=== PATIENT | female | born 1975 | race Caucasian/White ===

== ENCOUNTER 2024-10-04 17:15 | Inpatient (IN) ==
[2024-10-04] MEDS: ceFAZolin 2000MG 2,000 MG/15 ML SYR IV STA (17:30)
[2024-10-04 17:42] LABS: iSTAT Creatinine 0.8 mg/dl (0.6-1.3); iSTAT Hemoglobin 13.3 g/dl (12.0-16.0); iSTAT Ionized Calcium 1.17 mmol/l (1.12-1.32); iSTAT Potassium 3.8 mmol/L (3.3-5.0)
[2024-10-04] MEDS: DIPHTHER/TETAN/PERTUS Vaccine (Tdap, Adol/Adult) 0.5mL IM ONE (17:42)
--- NOTE | 2024-10-04 17:42 | Emergency Department Note ---
Impression & Plan Fracture of right tibia and fibula, Fall, Sprain of ankle, left ED Provider Note Provider: Shaun Nuno MD CHIEF COMPLAINT: Fall, leg injury HISTORY OF PRESENT ILLNESS: Patient is a 49-year-old family history of anxiety on Lexapro presenting here today via ambulance from work. Patient was coming down the stairs at work inside missed the last 1-2 steps and fell injuring her legs. Some pain minimal to the left ankle with significant pain with wound to the distal right lower leg and ankle. EMS reports they are concerned for an open fracture. Patient was traveling upon arrival. We can talk upon arrival. Denies any loss of conscious or head injury. Denies use of blood thinners. Patient [place] any head, neck, chest, abdominal, pelvic, or back pain. Patient denies any injury to the extremities. Patient reports intact sensation in the toes and able to wiggle her toes but pain if she attempts to move the right lower leg all. Denies significant right knee pain. Has had some hives with amoxicillin in the past and no antibiotics prior to arrival. PAST MEDICAL HISTORY: As noted above MEDICATIONS: Reviewed home medication SOCIAL HISTORY: PHYSICAL EXAM: GENERAL: alert and oriented in no acute distress on stretcher Head: normocephalic and atraumatic EYES: No injection, discharge or icterus. EOMI. NECK: Trachea midline. Good range of motion without midline cervical tenderness ENT: Mucous membranes pink and moist. LUNGS: Airway patent. No retractions. Breath sounds clear HEART: Regular rate and rhythm. No chest wall tenderness ABDOMEN: Soft and non-tender, without guarding or rebound with a stable pelvis SKIN: Acyanotic, warm, dry, without rashes EXTREMITIES: Without swelling, tenderness or deformity except for some slight lateral swelling to the left ankle and a approximately 4 x 2 cm wound to the right distal gr with a small amount of bone and blood noted. Intact 2+ right DP pulse and sensation of the right foot otherwise. NEUROLOGICAL: No focal deficits. No aphasia. No facial droop or slurred speech. Normal strength and tone in the extremities. Sensation to gross touch normal. EK bpm normal sinus rhythm. No PVC or PAC. No acute ST segment elevation or depression with a QTc of 456. CONTINUOUS CARDIAC MONITORING: was ordered and showed a heart rate of 70s to 80s bpm in normal sinus rhythm GCS 15. Patient's laboratory studies and imaging reviewed. Differential includes Fracture, dislocation, contusion, intra-abdominal, pneumothorax, intrathoracic, intracranial, neurologic, compartment syndrome, rhabdomyolysis, as well as other pathologies. IMPRESSION/MEDICAL DECISION MAKING: Patient assessed in room B1. Airway breathing circulation assessed and intact. ATLS review seems to only indicate some slight swelling to left lower ankle with a wound to the right distal gr and obvious lateral rotation of the right lower leg. Intact sensation in the bilateral feet and bilateral DP pulses. No significant tenderness of bilateral knees thighs or hips. Given a dose of Ancef and monitor for any reactions. Tetanus updated. No believe any additional imaging of the head or neck at this time. Nexus criteria negative. No believe we need a thoracic/chest/pelvis imaging as she only fell 2 steps. No other complaints here. Wound was quickly irrigated with some saline and covered with sterile bandaging. X-rays obtained and orthopedics contacted for the open fracture of the right tib-fib. Open right tib-fib fracture. Left ankle appears sprain. Blood work unremarkable. Orthopedics evaluated in the ER will plan for OR given the open fracture. Patient pain controlled with several doses of fentanyl. Gel splint per orthopedics placed on left ankle sprain and a Ortho-Glass splint placed on the right lower leg. Taken to the OR for further care. DIAGNOSIS: Fall, right open tib-fib fracture, left ankle sprain DISPOSITION: Evaluated by orthopedics and taken to the OR. Past Med/Surg History Problem List (Updated 10/04/24 @ 19:04 by Michele Batres MD) Fibula fracture Open tibial fracture Sprain of ankle, left (Acute) Fall (Acute) Fracture of right tibia and fibula (Acute) Encounter for pre-operative examination Surgical History History of delivery Family History Mother Leiomyoma of body of uterus Father Myocardial infarction Grandfather (Paternal) Myocardial infarction Grandfather (Maternal) Myocardial infarction Social History Smoking Status: Never smoker Do You Dip or Chew Tobacco: No; Preferred Language: Polish Feels Safe at Home: Yes Allergies Allergies Allergy/AdvReac Type Severity Reaction Status Date / Time Penicillins Allergy Unknown Hives Verified 10/04/24 17:21 Sulfa (Sulfonamide Allergy Unknown Hives Verified 10/04/24 17:21 Antibiotics) Home Meds Home Medications Medication Instructions Recorded Confirmed acetaminophen 325 mg tablet 325 mg PO QID PRN Pain 06/04/24 10/04/24 (Tylenol) escitalopram oxalate 10 mg tablet 10 mg PO UD 06/04/24 10/04/24 Results & Data (ED) Vital Signs Vital Signs - 24 hr 10/04/24 17:19 10/04/24 17:22 10/04/24 17:23 Temperature 36.9 C Temperature Source Pulse Rate 94 H 88 88 Pulse Rate [Apical] Pulse Rate from SpO2 Sensor Respiratory Rate 23 22 Respiratory Effort / Characteristics Respiratory Depth Respiratory Pattern Blood Pressure 183/119 H 183/119 H Blood Pressure [Right Arm] Blood Pressure Mean 151 Blood Pressure Mean [Right Arm] Pulse Oximetry 97 98 Oxygen Delivery Method Room Air Sepsis Recent Fever Within 48 Hours Sepsis New/Unexplained Change in Mental Status Sepsis Action Taken by Nursing 10/04/24 17:25 10/04/24 17:36 10/04/24 17:47 Temperature 36.9 C Temperature Source Oral Pulse Rate 92 H 89 Pulse Rate [Apical] Pulse Rate from SpO2 Sensor Respiratory Rate 20 17 Respiratory Effort / Characteristics Non-Labored Respiratory Depth Normal Respiratory Pattern Regular Blood Pressure 183/119 H 192/106 H Blood Pressure [Right Arm] Blood Pressure Mean 140 146 Blood Pressure Mean [Right Arm] Pulse Oximetry 98 100 Oxygen Delivery Method Room Air Room Air Sepsis Recent Fever Within 48 Hours No Sepsis New/Unexplained Change in Mental Status N/A Sepsis Action Taken by Nursing No Action Required 10/04/24 18:04 10/04/24 18:14 10/04/24 18:30 Temperature Temperature Source Pulse Rate 89 92 H Pulse Rate [Apical] 81 Pulse Rate from SpO2 Sensor Respiratory Rate 18 18 16 Respiratory Effort / Characteristics Non-Labored Respiratory Depth Normal Respiratory Pattern Regular Blood Pressure 161/112 H Blood Pressure [Right Arm] 179/118 H Blood Pressure Mean 124 Blood Pressure Mean [Right Arm] 138 Pulse Oximetry 100 100 100 Oxygen Delivery Method Room Air Room Air Sepsis Recent Fever Within 48 Hours Sepsis New/Unexplained Change in Mental Status Sepsis Action Taken by Nursing 10/04/24 18:30 10/04/24 18:30 10/04/24 18:51 Temperature Temperature Source Pulse Rate 93 H 89 Pulse Rate [Apical] Pulse Rate from SpO2 Sensor 91 H Respiratory Rate 21 13 Respiratory Effort / Characteristics Respiratory Depth Respiratory Pattern Blood Pressure 161/112 H 161/112 H 181/113 H Blood Pressure [Right Arm] Blood Pressure Mean 124 124 135 Blood Pressure Mean [Right Arm] Pulse Oximetry 100 100 Oxygen Delivery Method Sepsis Recent Fever Within 48 Hours Sepsis New/Unexplained Change in Mental Status Sepsis Action Taken by Nursing 10/04/24 19:24 10/04/24 19:25 Temperature Temperature Source Pulse Rate 84 Pulse Rate [Apical] Pulse Rate from SpO2 Sensor Respiratory Rate 16 Respiratory Effort / Characteristics Respiratory Depth Respiratory Pattern Blood Pressure 160/123 H Blood Pressure [Right Arm] Blood Pressure Mean 128 Blood Pressure Mean [Right Arm] Pulse Oximetry 100 Oxygen Delivery Method Room Air Sepsis Recent Fever Within 48 Hours Sepsis New/Unexplained Change in Mental Status Sepsis Action Taken by Nursing Laboratory Data 10/04/24 17:24 10/04/24 17:24 Lab Results 10/04/24 10/04/24 Range/Units 17:24 17:28 WBC 8.19 (4.8-10.8) K/ul RBC 4.78 (4.20-5.40) M/uL Hgb 13.2 (12.0-16.0) g/dl POC Hgb 13.3 (12.0-16.0) g/dl Hct 39.3 (37.0-47.0) % POC Hct 39 (37-47) % MCV 82.2 (80.0-100.0) fL MCH 27.6 (25.0-34.0) pg MCHC 33.6 (32.0-36.0) g/dL RDW Std Deviation 38.5 (36.4-46.3) fL RDW Coeff of Bry 12.8 (11.5-14.5) % Plt Count 274 (130-400) K/uL MPV 9.6 (9.4-12.4) fL Immature Gran % (Auto) 0.4 % Neut % (Auto) 58.7 % Lymph % (Auto) 28.8 % [place] % (Auto) 11.0 % Eos % (Auto) 0.6 % Baso % (Auto) 0.5 % Neut # (Auto) 4.81 (1.40-6.50) K/uL Lymph # (Auto) 2.36 (1.20-3.40) K/uL [place] # (Auto) 0.90 H (0.11-0.59) K/uL Eos # (Auto) 0.05 (0.00-0.50) K/uL Baso # (Auto) 0.04 (0.00-0.20) K/uL Immature Gran # (Auto) 0.03 (0.01-0.20) K/uL PT 10.4 (9.0-12.0) Seconds INR 1.0 (0.9-1.1) APTT 25 (21-31) Seconds PTT Ratio 0.9 POC Sodium 139 (135-144) mmol/L Sodium 137 (136-145) mmol/L POC Potassium 3.8 (3.3-5.0) mmol/L Potassium 3.7 (3.5-5.1) mmol/L POC Chloride 104 (101-112) mmol/L Chloride 104 (98-107) mmol/L Carbon Dioxide 25 (21-32) mmol/L POC Total CO2 24 (24-31) mmol/L Anion Gap 8 (3-11) POC Anion Gap 16.0 (16-25) mmol/L POC BUN 15 (7-18) mg/dl BUN 15 (6-23) mg/dl Creatinine 0.72 (0.6-1.2) mg/dl POC Creatinine 0.8 (0.6-1.3) mg/dl Est Cr Clr Drug Dosing 108.8 ml/min eGFR 103.71 BUN/Creatinine Ratio 20.8 H (10-20) Glucose 104 H (70-99(Fasting)) mg/dl POC Glucose (other) 103 H (70-99) mg/dl Calcium 9.2 (8.6-10.3) mg/dl POC Ioniz Calcium Herm[place] 1.17 (1.12-1.32) mmol/l Total Bilirubin 0.3 (0.2-1.0) mg/dl AST 17 (13-39) U/L ALT 11 (7-52) U/L Alkaline Phosphatase 42 (34-104) U/L Total Protein 8.0 (6.0-8.3) gm/dl Albumin 4.5 (3.4-5.0) gm/dl Globulin 3.5 (2.5-4.0) gm/dl Albumin/Globulin Ratio 1.3 (0.9-2) Lipase 26 (11-82) U/L HCG, Qual Negative (Negative) Blood Type AB Positive Antibody Screen NEGATIVE Administered Medications Discontinued Medications Diphtheria/Pertussis/Tetanus Vacc (Diphther/Tetan/Pertus Vaccine (Tdap, Adol/Adult) 0.5ml) 0.5 ml IM .ONCE ONE Stop: 10/04/24 17:23 Last Admin: 10/04/24 17:42 Dose: 0.5 ml Documented By: JANET Fentanyl Citrate (Fentanyl Citrate Pf 100 Mcg/2 Ml Vial) 50 mcg IV NOW STA Stop: 10/04/24 18:04 Last Admin: 10/04/24 18:09 Dose: 50 mcg Documented By: JANET Fentanyl Citrate (Fentanyl Citrate Pf 100 Mcg/2 Ml Vial) 50 mcg IV NOW STA Stop: 10/04/24 18:24 Last Admin: 10/04/24 18:44 Dose: 50 mcg Documented By: JANET Fentanyl Citrate (Fentanyl Citrate Pf 100 Mcg/2 Ml Vial) 50 mcg IV NOW STA Stop: 10/04/24 19:27 Last Admin: 10/04/24 19:33 Dose: 50 mcg Documented By: Cefazolin Sodium (Ancef 2000mg) 2,000 mg in 15 mls @ 3.75 mls/min IV NOW STA Stop: 10/04/24 17:28 Last Admin: 10/04/24 17:30 Dose: 3.75 mls/min Documented By: JANET Cefazolin Sodium (Ancef 2000mg) 2,000 mg in 15 mls @ 3.75 mls/min IV ONCE ONE; Protocol Stop: 10/04/24 21:01 Last Admin: 10/04/24 20:47 Dose: 3.75 mls/min Documented By: [id number] Tranexamic Acid (Tranexamic Acid / 0.7% Nacl 1000mg/100ml Bag) Confirm Administered Dose 1,000 mg IV .STK-MED ONE Stop: 10/04/24 20:44 Last Admin: 10/04/24 20:47 Dose: 1,000 mg Documented By: [id number] Imaging Data Radiologist's Impression: Ankle X-Ray 10/04/24 17:22 EXAM:Radiographs of the Right Ankle 2 Views INDICATION: Fell down stairs. TECHNIQUE: Frontal and lateral views of the right ankle. Images obtained at 5:21 PM. COMPARISON: No relevant prior studies available. FINDINGS: Limitations: None. Bones/joints: Comminuted fracture at the junction of the middle and distal thirds of the tibial shaft with apex medial angulation. Similar fracture slightly more distal involves the fibular shaft. There is an acute transverse fracture of the mid fibular shaft with very minimal apex anterior bowing. Soft tissues:Soft tissue swelling and medial gas noted consistent with open fracture. No radiopaque foreign body aside from bandaging. IMPRESSION: Comminuted mildly angulated fractures of the mid to distal shaft of the tibia and distal fibular shaft. Additional fibular midshaft fracture noted. ACT 112: Negative or not required by law. Electronically signed by Liza Herrmann 10-04-2024 5:50 PM Ankle X-Ray 10/04/24 17:22 EXAM: Radiographs of the Left Ankle 3 Views INDICATION: Fall down stairs. TECHNIQUE: Frontal, lateral and oblique views of the left ankle. COMPARISON: No relevant prior studies available. FINDINGS: Limitations: None. Bones/joints: No fracture, erosion or dislocation. Soft tissues: There is a moderate lateral soft tissue hematoma. No soft tissue gas collection or radiopaque foreign body. IMPRESSION: There is a moderate lateral soft tissue hematoma. No fracture. Recommend follow-up in 7 to 10 days if symptoms persist. ACT 112: Negative or not required by law. Electronically signed by Liza Herrmann 10-04-2024 5:57 PM Tibia/Fibula X-Ray 10/04/24 17:26 EXAM: Radiographs of the Right Tibia and Fibula 2 Views INDICATION: Fell down stairs TECHNIQUE: Frontal and lateral views of the right tibia and fibula. COMPARISON: No relevant prior studies available. FINDINGS: Bones/joints: There is a comminuted fracture of the tibial shaft at the junction of the middle and distal thirds. Similar fracture of the fibula noted in the distal shaft. There is a transverse fracture of the midshaft fibula. There is significant rotation of near 90 degrees about the comminuted fractures with the ankle seen in the lateral projection in the knee AP. Soft tissues: Diffuse soft tissue swelling noted. There is gas adjacent to the tibial fracture consistent with an open wound. Overlying bandaging noted. IMPRESSION: Acute tibial and fibular fractures with near 90 degrees rotation of the distal fragments. ACT 112: Negative or not required by law. Electronically signed by Liza Herrmann 10-04-2024 5:59 PM Chest X-Ray 10/04/24 18:23 EXAM: Radiograph of the Chest 1 View INDICATION: Chest pain. TECHNIQUE: Frontal view of the chest. COMPARISON: No relevant prior studies available. FINDINGS: Lungs and pleural spaces: No consolidation or pulmonary edema. No pleural effusion or pneumothorax. Heart: Shape and configuration within normal limits allowing for technique. Mediastinum: Normal contour. Bones/joints: No fracture, erosion or dislocation. Soft tissues: No abnormality noted. No radiopaque foreign body noted. Upper abdomen: No abnormality noted. IMPRESSION: No abnormality noted. ACT 112: Negative or not required by law. Electronically signed by Liza Herrmann 10-04-2024 6:[address] 10/04/24 18:23 Exam(s): CT RIGHT ANKLE Without Contrast EXAM: CT Right Lower Extremity Without Intravenous Contrast, Ankle CLINICAL HISTORY: Reason for exam: leg frx, eval. TECHNIQUE: Axial computed tomography images of the right ankle without intravenous contrast. CTDI is 24 mGy and DLP is 590 mGy-cm. Automated exposure control was utilized for the study. A dose lowering technique was utilized adhering to the principles of ALARA. COMPARISON: X-rays same-day FINDINGS: Bones/joints: Comminuted open fracture of the tibial shaft. Comminuted fracture of the distal fibular metadiaphysis. Normal alignment of the mortise. No fracture extension to the articular surface. The distal syndesmosis appears normal. Soft tissues: No grossly evident tendon transection or entrapment. Soft tissue edema, hemorrhage, and gas. No radiopaque foreign body. IMPRESSION: 1. Comminuted open fracture of the tibial shaft. 2. Comminuted fracture of the distal fibular metadiaphysis. Electronically signed by: Wes Baez MD 10/04/24 20:45 PM Discharge Plan Visit Data Chief Complaint: Trauma ED Provider: Shaun Nuno Discharge Problem: Fracture of right tibia and fibula, Fall, Sprain of ankle, left Discharge Instructions Interventions: ED Discharge Assessment Last Done: 10/04/24 19:50 Discharge Problem: Fracture of right tibia and fibula Qualifiers: Encounter type: initial encounter Fracture type: open Sprain of ankle, left Qualifiers: Encounter type: initial encounter
[2024-10-04 17:43] LABS: Basophils # (auto) 0.04 K/uL (0.00-0.20); Basophils % (auto) 0.5 %; Eosinophils # (auto) 0.05 K/uL (0.00-0.50); Eosinophils % (auto) 0.6 %; Hematocrit (blood only) 39.3 % (37.0-47.0); Hemoglobin 13.2 g/dl (12.0-16.0); Immature Granulocytes # (auto) 0.03 K/uL (0.01-0.20); Immature Granulocytes % (auto) 0.4 %; Lymphocytes # (auto) 2.36 K/uL (1.20-3.40); Lymphocytes % (auto) 28.8 %; Mean Corpuscular Hemoglobin 27.6 pg (25.0-34.0); Mean Corpuscular Hgb Conc 33.6 g/dL (32.0-36.0); Mean Corpuscular Volume 82.2 fL (80.0-100.0); Mean Platelet Volume 9.6 fL (9.4-12.4); Neutrophils # (auto) 4.81 K/uL (1.40-6.50); Neutrophils % (auto) 58.7 %; Platelet Count 274 K/uL (130-400); RDW Coefficient of Variation 12.8 % (11.5-14.5); RDW Standard Deviation 38.5 fL (36.4-46.3); Red Blood Count 4.78 M/uL (4.20-5.40); White Blood Count 8.19 K/ul (4.8-10.8)
--- NOTE | 2024-10-04 17:50 | XRay Report ---
EXAM:Radiographs of the Right Ankle 2 Views INDICATION: Fell down stairs. TECHNIQUE: Frontal and lateral views of the right ankle. Images obtained at 5:21 PM. COMPARISON: No relevant prior studies available. FINDINGS: Limitations: None. Bones/joints: Comminuted fracture at the junction of the middle and distal thirds of the tibial shaft with apex medial angulation. Similar fracture slightly more distal involves the fibular shaft. There is an acute transverse fracture of the mid fibular shaft with very minimal apex anterior bowing. Soft tissues:Soft tissue swelling and medial gas noted consistent with open fracture. No radiopaque foreign body aside from bandaging. IMPRESSION: Comminuted mildly angulated fractures of the mid to distal shaft of the tibia and distal fibular shaft. Additional fibular midshaft fracture noted. ACT 112: Negative or not required by law. Electronically signed by Liza Herrmann 10-04-2024 5:50 PM
[2024-10-04 17:58] LABS: Albumin Globulin Ratio 1.3 (0.9-2); Albumin Level 4.5 gm/dl (3.4-5.0); BUN Creatinine Ratio 20.8 (10-20); Bilirubin,Total 0.3 mg/dl (0.2-1.0); Calcium 9.2 mg/dl (8.6-10.3); Creatinine Clr Calc Pharmacy 108.8 ml/min; Globulin 3.5 gm/dl (2.5-4.0); Potassium 3.7 mmol/L (3.5-5.1)
--- NOTE | 2024-10-04 17:59 | XRay Report ---
EXAM: Radiographs of the Left Ankle 3 Views INDICATION: Fall down stairs. TECHNIQUE: Frontal, lateral and oblique views of the left ankle. COMPARISON: No relevant prior studies available. FINDINGS: Limitations: None. Bones/joints: No fracture, erosion or dislocation. Soft tissues: There is a moderate lateral soft tissue hematoma. No soft tissue gas collection or radiopaque foreign body. IMPRESSION: There is a moderate lateral soft tissue hematoma. No fracture. Recommend follow-up in 7 to 10 days if symptoms persist. ACT 112: Negative or not required by law. Electronically signed by Liza Herrmann 10-04-2024 5:57 PM
--- NOTE | 2024-10-04 17:59 | XRay Report ---
EXAM: Radiographs of the Right Tibia and Fibula 2 Views INDICATION: Fell down stairs TECHNIQUE: Frontal and lateral views of the right tibia and fibula. COMPARISON: No relevant prior studies available. FINDINGS: Bones/joints: There is a comminuted fracture of the tibial shaft at the junction of the middle and distal thirds. Similar fracture of the fibula noted in the distal shaft. There is a transverse fracture of the midshaft fibula. There is significant rotation of near 90 degrees about the comminuted fractures with the ankle seen in the lateral projection in the knee AP. Soft tissues: Diffuse soft tissue swelling noted. There is gas adjacent to the tibial fracture consistent with an open wound. Overlying bandaging noted. IMPRESSION: Acute tibial and fibular fractures with near 90 degrees rotation of the distal fragments. ACT 112: Negative or not required by law. Electronically signed by Liza Herrmann 10-04-2024 5:59 PM
[2024-10-04 18:06] LABS: Pregnancy Test, Serum Negative (Negative)
[2024-10-04 18:07] LABS: Partial Thromboplastin Ratio 0.9; Partial Thromboplastin Time 25 Seconds (21-31); Prothrombin Time 10.4 Seconds (9.0-12.0)
[2024-10-04] MEDS: fentaNYL citrate PF 100 MCG/2 ML VIAL IV STA ×3 (18:09→19:33)
--- NOTE | 2024-10-04 18:43 | XRay Report ---
EXAM: Radiograph of the Chest 1 View INDICATION: Chest pain. TECHNIQUE: Frontal view of the chest. COMPARISON: No relevant prior studies available. FINDINGS: Lungs and pleural spaces: No consolidation or pulmonary edema. No pleural effusion or pneumothorax. Heart: Shape and configuration within normal limits allowing for technique. Mediastinum: Normal contour. Bones/joints: No fracture, erosion or dislocation. Soft tissues: No abnormality noted. No radiopaque foreign body noted. Upper abdomen: No abnormality noted. IMPRESSION: No abnormality noted. ACT 112: Negative or not required by law. Electronically signed by Liza Herrmann 10-04-2024 6:43 PM
--- NOTE | 2024-10-04 18:46 | Anesthesiology Consultation ---
Date of Service October 04, 2024 Assessment & Plan (1) Encounter for pre-operative examination: Chart Review Chart Review: Patient NOT seen in Pre Admission Testing urgent procedure Consults Requested none History Surgery Operation Date: 10/04/24 20:30 Proposed Procedures p Intramedullary Nail Tibia(Right) - Michele Batres MD Height/Weight Height: 5 ft 4 in Weight: 96.4 kg Allergies Allergy/AdvReac Type Severity Reaction Status Date / Time Penicillins Allergy Unknown Hives Verified 10/04/24 17:21 Sulfa (Sulfonamide Allergy Unknown Hives Verified 10/04/24 17:21 Antibiotics) Medications Home Medications Medication Instructions Recorded Confirmed Last Taken acetaminophen 325 mg tablet 325 mg PO QID PRN Pain 06/04/24 10/04/24 Unknown (Tylenol) escitalopram oxalate 10 mg tablet 10 mg PO UD 06/04/24 10/04/24 Unknown Past Family History Family History Mother Leiomyoma of body of uterus Father Myocardial infarction Grandfather (Paternal) Myocardial infarction Grandfather (Maternal) Myocardial infarction Past Surgical History Surgical History History of delivery Social History Smoking Status: Never smoker Do You Dip or Chew Tobacco: No Physical Exam Vital Signs Last Vital Signs Temp 98.4 F 10/04/24 17:25 Pulse 93 H 10/04/24 18:30 Resp 21 10/04/24 18:30 BP 161/112 H 10/04/24 18:30 Pulse Ox 100 10/04/24 18:30 O2 Del Method Room Air 10/04/24 18:14 Testing Laboratory Results 10/04/24 17:24 10/04/24 17:24 PT 10.4 Seconds (9.0-12.0) 10/04/24 17:24 INR 1.0 (0.9-1.1) 10/04/24 17: APTT 25 Seconds (21-31) 10/04/24 17:24 Blood Type AB Positive 10/04/24 17:24 Antibody Screen NEGATIVE 10/04/24 17:24 10/04/24 17:28 POC Glucose (other) 103 H
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
[2024-10-04] MEDS ORDERED: MIDAZOLAM HCL 1 MG/ML 2ML VIAL ONE (19:15)
[2024-10-04] MEDS ORDERED: DEXAMETHASONE SOD INJ 4 MG/ML VIAL ONE (19:15)
[2024-10-04] MEDS ORDERED: ROCURONIUM BROMIDE 10 MG/ML 5 ML VIAL IV ONE (19:15)
[2024-10-04] MEDS ORDERED: PROPOFOL IV EMULSION 10 MG/ML 20 ML VIAL IV ONE (19:15)
[2024-10-04] MEDS ORDERED: ONDANSETRON INJ 2 MG/ML 2 ML VIAL ONE ×2 (19:15→22:51)
[2024-10-04] MEDS ORDERED: fentaNYL citrate PF 100 MCG/2 ML VIAL ONE ×3 (19:15→22:38)
[2024-10-04] MEDS ORDERED: SUCCINYLCHOLINE 100MG/5ML SYR IV ONE (19:17)
[2024-10-04] MEDS ORDERED: ONDANSETRON INJ 2 MG/ML 2 ML VIAL IV PRN (20:28)
[2024-10-04] MEDS ORDERED: fentaNYL citrate PF 100 MCG/2 ML VIAL IV PRN (20:28)
[2024-10-04] MEDS ORDERED: ATROPINE SULFATE 0.1 MG/ML 10ML SYR IV PRN (20:28)
[2024-10-04] MEDS ORDERED: ePHEDrine sulfate 50 MG/ML AMP IV PRN (20:28)
--- NOTE | 2024-10-04 20:46 | CT Scan Report ---
Exam(s): CT RIGHT ANKLE Without Contrast EXAM: CT Right Lower Extremity Without Intravenous Contrast, Ankle CLINICAL HISTORY: Reason for exam: leg frx, eval. TECHNIQUE: Axial computed tomography images of the right ankle without intravenous contrast. CTDI is 24 mGy and DLP is 590 mGy-cm. Automated exposure control was utilized for the study. A dose lowering technique was utilized adhering to the principles of ALARA. COMPARISON: X-rays same-day FINDINGS: Bones/joints: Comminuted open fracture of the tibial shaft. Comminuted fracture of the distal fibular metadiaphysis. Normal alignment of the mortise. No fracture extension to the articular surface. The distal syndesmosis appears normal. Soft tissues: No grossly evident tendon transection or entrapment. Soft tissue edema, hemorrhage, and gas. No radiopaque foreign body. IMPRESSION: 1. Comminuted open fracture of the tibial shaft. 2. Comminuted fracture of the distal fibular metadiaphysis. Electronically signed by: Wes Baez MD 10/04/24 20:45 PM
[2024-10-04] MEDS: ceFAZolin 2000MG 2,000 MG/15 ML SYR IV ONE (20:47)
[2024-10-04] MEDS: TRANEXAMIC ACID / 0.7% NACL 1000MG/100ML BAG IV ONE (20:47)
[2024-10-04] MEDS: LIDOCAINE 1% LOCAL 20 ML VIAL ONE (23:46)
[2024-10-04] MEDS: BUPIVACAINE 0.5 % 5 MG/1 ML MPF 30ML VIAL ONE (23:46)
--- NOTE | 2024-10-04 23:50 | Post Operative Brief Note ---
Immediate Post Op Note Date of Surgery October 04, 2024 Pre & Post Diagnosis Operation Date: 10/04/24 20:30 Pre-Op Diagnosis: Open Tibial Fracture- Right, Closed fibular fracture Post-Op Diagnosis: Grade 2 open right tibia fracture and a closed comminuted fibular fracture I identified the patient and participated in the time-out.: Yes Procedure Operation Date: 10/04/24 20:30 Actual Procedures p Irrigation and Debriedment Open Right Tibial Fracture, Intramedullary Nail Tibia(Right) - Michele Batres MD Surgeon Michele Batres MD Veterinary Dentist KAMERON Hannah no resident or fellow available Estimated Blood Loss 250 Findings Consistent with Post-Op Diagnosis Anesthesia Type General Regional Complications none Disposition Accompanied Patient To Recovery: No Disposition: Recovery Room
--- NOTE | 2024-10-05 00:13 | Operative Report ---
Post Operative Report Pre & Post Diagnosis Operation Date: 10/04/24 20:30 Pre-Op Diagnosis: Open Tibial Fracture- Right Post-Op Diagnosis: Open Tibial Fracture- Right I identified the patient and participated in the time-out.: Yes Procedure Operation Date: 10/04/24 20:30 Actual Procedures p Irrigation and Debriedment Open Right Tibial Fracture, Intramedullary Nail Tibia(Right) - Michele Batres MD Surgeon Michele Batres MD Tow Motor Driver Bassam James PA-C no resident or fellow available Estimated Blood Loss 250 Findings Consistent with Post-Op Diagnosis Specimens None Description of Procedure I was present for the entire case. Please see Dr. Batres's procedure note for full details. I assisted with skin prep, draping, retraction, suctioning, hardware placement, fracture reduction, irrigation, wound closure, dressing application, and splinting. I attest to the content of the Intraoperative Record and any orders documented therein. Any exceptions are noted below.
--- NOTE | 2024-10-05 00:27 | Anesthesiology Progress Note ---
Date of Service October 05, 2024 Anesthesia Post Procedure Vital Signs Vital Signs: Temp Pulse Pulse Resp BP BP Pulse Ox 10/05/24 00:23 98.6 F 87 21 164/97 H 98 10/05/24 00:13 99 F 88 16 166/97 H 100 10/05/24 00:03 98.2 F 97 H 18 155/97 H 100 10/04/24 19:25 160/123 H 10/04/24 19:24 84 16 100 10/04/24 18:51 89 13 181/113 H 100 10/04/24 18:30 93 H 21 161/112 H 100 10/04/24 18:30 161/112 H 10/04/24 18:30 92 H 16 161/112 H 100 10/04/24 18:14 89 18 100 10/04/24 18:04 81 18 179/118 H 100 10/04/24 17:47 10/04/24 17:36 89 17 192/106 H 100 10/04/24 17:25 98.4 F 92 H 20 183/119 H 98 10/04/24 17:23 88 10/04/24 17:22 98.4 F 88 22 183/119 H 98 10/04/24 17:19 94 H 23 183/119 H 97 O2 Del Method 10/05/24 00:23 Room Air 10/05/24 00:13 Room Air 10/05/24 00:03 Room Air 10/04/24 19:25 10/04/24 19:24 Room Air 10/04/24 18:51 10/04/24 18:30 10/04/24 18:30 10/04/24 18:30 10/04/24 18:14 Room Air 10/04/24 18:04 Room Air 10/04/24 17:47 Room Air 10/04/24 17:36 10/04/24 17:25 Room Air 10/04/24 17:23 10/04/24 17:22 Room Air 10/04/24 17:19 Pain Intensity Right Ankle: Pain Intensity: 6 Transfer of Care Handoff Completed per policy Notes Mental Status: alert / awake / arousable and participated in evaluation Patient Amnestic to Procedure: Yes Nausea / Vomiting: adequately controlled Pain: adequately controlled Airway Patency, RR, SpO2: stable & adequate BP & HR: stable & adequate Hydration State: stable & adequate Anesthetic Complications: no major complications apparent and Pt Satisfied with anesthetic care
[2024-10-05] MEDS ORDERED: diphenhydrAMINE Capsule 25 MG CAP PO PRN (01:00)
[2024-10-05] MEDS ORDERED: HYDROmorphone INJ 0.5 MG/0.5 ML SYR IV PRN (01:00)
[2024-10-05] MEDS ORDERED: METOCLOPRAMIDE HCL INJ 5 MG/ML 2 ML VIAL IV PRN (01:00)
[2024-10-05] MEDS ORDERED: ACETAMINOPHEN 500 MG TAB PO PRN (01:00)
[2024-10-05] MEDS ORDERED: bisacodyL 10 MG SUPP PR PRN (01:00)
[2024-10-05] MEDS ORDERED: ALUMINUM/MAGNESIUM SUSP 30 ML UDC PO PRN (01:00)
[2024-10-05] MEDS ORDERED: MAGNESIUM HYDROXIDE SUSP 30 ML UDC PO PRN (01:00)
[2024-10-05] MEDS ORDERED: ONDANSETRON INJ 2 MG/ML 2 ML VIAL IV PRN (01:00)
[2024-10-05] MEDS ORDERED: NALOXONE HCL 0.4 MG/1 ML VIAL/CARP IV PRN (01:00)
[2024-10-05] MEDS ORDERED: ESCITALOPRAM OXALATE 10 MG TAB PO SCH (01:00)
[2024-10-05] MEDS: KETOROLAC 30 MG/ML VIAL IV PRN (01:36)
[2024-10-05] MEDS: ceFAZolin 2000MG 2,000 MG/15 ML SYR IV SCH (01:37)
--- NOTE | 2024-10-05 03:40 | XRay Report ---
EXAM: XR tibia fibula RT 2V CLINICAL HISTORY: PAIN NOT PREG WTW TECHNIQUE: X-ray of right tibia and fibula, 2 views: AP (Anteroposterior) and lateral projections. COMPARISON: 10/04/2024 FINDINGS: Bone: Post ORIF status. Intramedullary nail with fixation screws are noted in the tibia through distal tibial comminuted fracture with adequate alignment. Redemonstration of comminuted fracture of the distal shaft of the fibula with near adequate alignment of fragments. Redemonstration of undisplaced transverse mid-shaft fracture of the fibula. Soft Tissue: Soft tissue swelling noted. Redemonstration of air adjacent to tibial fracture possibly subcutaneous emphysema. Surgical chris are noted in the soft tissues of the right leg. IMPRESSION: 1. Post ORIF status (open reduction and internal fixation). Interval new. 2. Intramedullary nail with fixation screws in tibia through distal tibial comminuted fracture with adequate alignment. 3. Redemonstration of comminuted fracture of the distal shaft of the fibula with near adequate alignment of fragments. 4. Redemonstration of undisplaced transverse mid-shaft fracture of the fibula. Disclaimer: A subtle bone abnormality or fracture may not be readily apparent on X-rays, thus clinical correlation and further imaging including follow-up CT, MRI, or follow-up X-rays are advised as needed. Electronically signed by Shannan Lutz 10-05-2024 02:24 AM
[2024-10-05 03:47] LABS: Appearance Urine Clear (Clear); Bilirubin Urine Negative (Negative); Blood Urine Negative (Negative); Color Urine Yellow; Glucose Urine UA Negative (Negative); Ketones Urine 1+ (Negative); Leukocyte Esterase Urine Negative (Negative); Nitrite Urine Negative (Negative); Protein Urine Negative (Negative); Urobilinogen Urine Negative (Negative)
[2024-10-05] MEDS: traMADol HCL 50 MG TABLET PO PRN (05:27)
[2024-10-05] MEDS: TRANEXAMIC ACID / 0.7% NACL 1,000 MG/100 ML BAG IV SCH (05:28)
--- NOTE | 2024-10-05 07:36 | Fluoroscopy Report ---
FL tibia/fibula RT 2V CLINICAL HISTORY: R ANKLE FX COMPARISON STUDY: Radiographs 10/05/2024 FLUOROSCOPY TIME: 2 minutes and 45 seconds FLUOROSCOPY IMAGES: 1 EXPOSURE DOSE: Not given by technologist mGy FINDINGS: Partially imaged hardware in the distal tibia. Comminuted distal fibular fracture. IMPRESSION: Fluoroscopic assistance as above. ACT 112: Negative or not required by law. Electronically signed by: Haider Matos M.D. 10/05/2024 7:34 AM
--- NOTE | 2024-10-05 07:58 | Electrocardiogram Report ---
Test Reason : Blood Pressure : */* mmHG Vent. Rate : 78 BPM Atrial Rate : 78 BPM P-R Int : 150 ms QRS Dur : 84 ms QT Int : 400 ms P-R-T Axes : 70 73 79 degrees QTcB Int : 456 ms Normal sinus rhythm Normal ECG When compared with ECG of 13-Mar-2016 11:56, Nonspecific ST abnormality no longer present Confirmed by Jose Perry ([id number]) on 10/05/2024 7:58:00 AM Referred By: REFERRED SELF Confirmed By: Jose Perry
[2024-10-05] MEDS: FERROUS GLUCONATE 324 MG TAB PO SCH (08:56)
[2024-10-05] MEDS: DOCUSATE SODIUM 100 MG CAP PO SCH (08:56)
[2024-10-05] MEDS: ESCITALOPRAM OXALATE 10 MG TAB PO SCH (08:57)
[2024-10-05] MEDS: MULTIVITAMIN TAB PO SCH (08:57)
[2024-10-05 09:32] LABS: Hemoglobin 10.4 g/dl (12.0-16.0); Mean Corpuscular Hgb Conc 33.5 g/dL (32.0-36.0); Mean Corpuscular Volume 83.6 fL (80.0-100.0); Mean Platelet Volume 9.9 fL (9.4-12.4); Platelet Count 247 K/uL (130-400); RDW Standard Deviation 39.5 fL (36.4-46.3); Red Blood Count 3.71 M/uL (4.20-5.40); White Blood Count 11.08 K/ul (4.8-10.8)
--- NOTE | 2024-10-05 10:01 | Operative Report ---
Post Operative Report Pre & Post Diagnosis Operation Date: 10/04/24 20:30 Pre-Op Diagnosis: Right distal tib-fib fib fracture with a grade 2 open tibial fracture Post-Op Diagnosis: Same I identified the patient and participated in the time-out.: Yes Procedure Operation Date: 10/04/24 20:30 Actual Procedures p Irrigation and Debriedment Open Right Tibial Fracture, Intramedullary Nail Tibia, Open reduction(Right) - Michele Batres MD Surgeon Michele Batres MD Resource Conservation Manager Bassma James PA-C no resident or fellow available Estimated Blood Loss 250 Findings Consistent with Post-Op Diagnosis Specimens None Anesthesia Type General Regional Complications none Disposition Accompanied Patient To Recovery: No Disposition: Recovery Room Indications Valerie is 49 years old. She fell down steps when leaving work. She sprained her left ankle which was treated with an ankle air stirrup splint. X-rays of the left ankle are negative. She has a comminuted right distal tib-fib fracture. The tibia is associated with a 5 cm open wound anteromedially. Her leg has been provisionally reduced and splinted in the emergency room. She is able to flex and extend her toes has intact sensation and postreduction had a 1+ dorsalis pedis pulse. The posterior tibial pulse could not be reached. Capillary refill was less than 2 seconds. Her compartments were soft and she had no clinical evidence of compartment syndrome. Preoperative CT scan showed a comminuted tib-fib fracture. The fracture did not extend into the ankle joint. Both fractures were markedly comminuted. She received Ancef upon arrival to the emergency room. Her tetanus was updated. Urgent surgical treatment was recommended and she agreed to proceed. Description of Procedure Informed consent. Patient identified. She identified the procedure site as the right leg. I marked it with my initials. A preoperative surgical timeout is performed. Preop dose of IV antibiotics was given. She was taken to the operating room positioned supine on the OR table with a tourniquet on the right thigh which is not inflated during the case. TXA given. Anesthetic administered. The splint was removed revealing the 5 cm wound in a grossly unstable ankle fracture. DP and PT pulses were 1+ palpable. The leg was thoroughly scrubbed with Betadine scrub to remove any superficial contamination. Care was taken at all times to keep the fracture as aligned and stabilizes possible traction. The leg was then prepped with Betadine paint. Draped in usual sterile fashion. Fluoroscopic guidance was utilized. The knee was at times Straight and other times bent. The radiolucent triangle was utilized. SCD on the nonoperative leg for DVT prophylaxis. Postop early mobility SCDs and chemoprophylaxis.The wound was approximately 12 to 15 cm proximal to the ankle joint. The first order of business was to explore the fracture site and thoroughly irrigated. I extended the incisions 3 to 4 cm proximal and distal in a longitudinal fashion to gain access to the fracture. There was a coronal split in the proximal fragment which I provisionally secured with a large bone clamp which also allowed manipulation of the fracture. Irrigation with 6 L of sterile saline using pulsatile lavage was performed. This included both proximal distal intramedullary canals. Curetting of the intramedullary canals was also performed. No gross contamination was noted and a thorough debridement of the entire fracture site removing hematoma as well as irrigating it was performed. No gross contamination was noted. Unfortunately there was a large posteromedial fragment which was located within the intramedullary canal of the tibia. Gentle manipulation of this was performed to extricated from the intramedullary area however at this time it became apparent that this piece of bone had no significant soft tissue attachments to it and it was removed. It was the posterior medial tibia. It was approximately 4 cm long and at its widest about 1.5 cm. This left a bony defect in that area. I then went ahead and flex the knee over the radiolucent triangle. I made a 10 cm incision centered over the patella and patellar tendon. Sharp dissection was utilized down to the level of the patellar tendon. A medial patellar tendon approach was performed and the crest of the proximal tibia was identified. Using fluoroscopic guidance a guidepin was introduced into the proximal tibia just at the anterior margin of the tibial crest and in line with the shaft which corresponded to the medial border of the lateral tibial spine. The pin was adjusted x 2. It was overreamed with the opening reamer using fluoroscopic guidance. A guide brett was then easily introduced down the length of the femur to the physeal scar of the distal tibia. This was confirmed in multiplanar fluoroscopy. When inserting the guide brett as well as reaming and insertion of the nail every effort was made to obtain an anatomic reduction and alignment of the tibial fracture. This was based upon intact anterior lateral and posterolateral cortices which could be visibly seen and palpated through the fracture site and held manually reduced anatomically by the assistant buyer. It could not be held with a clamp. The 8.5 mm opening reamer was utilized followed by reaming in 1 mm increments up to 10.5 mm and half millimeter increments up to 11.5 with strong cortical chatter along the diaphysis. Brett length was determined to be 345 mm. Diameter 10 mm. The brett was affixed to the insertion device and then inserted this far possible in a manual fashion and finally seated with blows from the mallet with the knee in a hyperflexed position and the fracture anatomically reduced. The brett was inserted down to the level of the physeal scar within 5 to 7 mm of the subchondral bone. It was located in a central central fashion just like the guide brett. The fracture was stable and anatomically reduced with intimate bony contact along the after mentioned "intact cortices. The provisional clamp could then be removed. Prior to surgery clinical rotational alignment was determined and this was reproduced on the operative side. With the patella forward the foot faced straight forward. Alignment and length were also confirmed using the bone alignment. The brett was countersunk 10 mm. 2 proximal interlocking screws were inserted. Static 1 and dynamic. These were done percutaneously from medial to lateral and confirmed to be in proper position fluoroscopically. The proximal screw was slightly long but left in situ. The insertion apparatus was removed and the 5 mm endcap extension was applied and confirmed to be in good position fluoroscopically. Then inserted 3 distal interlocking screws 2 medial to lateral and 1 anterior to posterior using the perfect [place] technique. The skin was incised blunt dissection was performed down to the level of the bone and the soft tissues were retracted with a hemostat to allow the drill to engage the bone. Screws of appropriate length were inserted and sales service representative fluoroscopic images were obtained. Copious irrigation was performed again of the fracture site and all the incisions with another liter of saline for total of 7 L. The fracture site was visibly and radiographically anatomically reduced. Hardware was in good position. There was no fracture extension into the joint. The comminuted fibular fracture was very well aligned and out to length. The syndesmosis was clinically and radiographically stressed and found to be stable without any significant widening. I did not think fibular fixation was needed. Care was taken to avoid coronal plane malalignment when inserting the brett reaming at [facility]. The anatomical alignment was maintained. The percutaneous incisions were closed with 2-0 Vicryl and chris. The proximal incision was closed with 0 Vicryl for the patellar tendon 2-0 Vicryl for the subcu layer followed by chris. The surgical extension of the open fracture was closed with 2-0 Vicryl and chris. The traumatic open wound was closed with 3-0 nylon simple and near far far near stitches. Tension-free closure. Local anesthetic Marcaine and lidocaine was injected into the skin of the surgical incisions only. The leg was cleaned with wet and dry sponges. Compartments remain soft. Xeroform 4 x 4's ABD soft wrap and a full-length Darron wrap was applied. Patient awakened from anesthesia without difficulty taken to the recovery room in stable condition. There were no specimens or complications counts were correct and blood loss is estimated to be 250 cc. At the conclusion the operation I contacted patient's by phone discussed him with with him my findings. Patient will be admitted to the hospital. Pain control. PT and OT. She will be toe-touch weightbearing on the right leg with crutches. Monitor neurovascular status. Postop antibiotics Ancef x 24 hours. Lovenox 30 mg SQ twice daily beginning 24 hours postop. A Synthes tibial nail was inserted 10 mm in diameter and 345 mm in length with 5 mm endcap to proximal interlocking screws and 3 distal interlocking screws. I attest to the content of the Intraoperative Record and any orders documented therein. Any exceptions are noted below.
--- NOTE | 2024-10-05 10:30 | Orthopedic Progress Note ---
Date of Service October 05, 2024 Assessment & Plan (1) Sprain of ankle, left: Plan: Continue use of the air stirrup Work on range of motion Ice (2) Open tibial fracture: Plan: Ice PT/OT Toe-touch weightbearing Dressing clean dry and intact and left in place Pain controlled p.o. medication IV antibiotics DVT prophylaxis with recommended Lovenox Dr. Batres will follow-up with patient later this afternoon (3) Fibula fracture: Admission and Anticipated Discharge Date Admission Date: October 04, 2024 Subjective This 49-year-old female is day 1 status post irrigation and debridement with intramedullary nailing of her right tibia for an open tibial shaft fracture that she sustained after missing a few steps at work. Patient states her pain is well-controlled with the medication she is receiving. She is on IV antibiotics due to the fracture being open. Patient states she has not received any type of blood thinning agents as of yet. She denies chest pain, shortness of breath, fever, chills, sweats or numbness or tingling in either lower extremity. Review of Systems Review of Systems: All systems reviewed & are unremarkable except as noted in Subjective Physical Exam Physical Exam: Right lower extremity: Patient tolerates passive extension of her lower extremity to 0 degrees and passive flexion to 25 degrees. Her dressing was clean dry and intact and left in place. She is unable to perform an active straight leg raise test but does tolerate passive straight leg raise testing. She is able to actively dorsi and plantarflex her foot. She is able to detect light sensation to touch over the pads of all digits. Her peripheral pulses are 2+. Left ankle: Stirrup is in place. Patient has mild edema over the lateral aspect of the ankle with tenderness to palpation just distal to the tip of the fibula and over the ATFL. She is able to actively dorsi and plantarflex her foot. She does have discomfort with light passive inversion and eversion. Her peripheral pulses are 2+. She is neurovascularly intact. Results & Data Vital Signs (Past 12 Hours) Vital Signs Temp Pulse Resp BP BP Pulse Ox O2 Del Method 10/05/24 07:58 36.9 C 98 H 16 139/89 97 Room Air 10/05/24 04:30 36.9 C 96 H 16 134/88 97 Room Air 10/05/24 03:15 37.1 C 104 H 16 146/92 H 99 Room Air 10/05/24 02:13 37.1 C 85 16 164/98 H 97 Room Air 10/05/24 01:20 36.9 C 85 16 162/99 H 99 Room Air 10/05/24 01:09 36.9 C 81 15 165/94 H 99 Room Air 10/05/24 00:23 37.0 C 87 21 164/97 H 98 Room Air 10/05/24 00:13 37.2 C 88 16 166/97 H 100 Room Air 10/05/24 00:03 36.8 C 97 H 18 155/97 H 100 Room Air Diagnostic Findings Laboratory Results WBC 11.08 K/ul (4.8-10.8) H 10/05/24 08:44 RBC 3.71 M/uL (4.20-5.40) L 10/05/24 08:44 Hgb 10.4 g/dl (12.0-16.0) L 10/05/24 08:44 POC Hgb 13.3 g/dl (12.0-16.0) 10/04/24 17:28 Hct 31.0 % (37.0-47.0) L 10/05/24 08:44 POC Hct 39 % (37-47) 10/04/24 17:28 MCV 83.6 fL (80.0-100.0) 10/05/24 08:44 MCH 28.0 pg (25.0-34.0) 10/05/24 08:44 MCHC 33.5 g/dL (32.0-36.0) 10/05/24 08:44 RDW Std Deviation 39.5 fL (36.4-46.3) 10/05/24 08:44 RDW Coeff of Bry 13.0 % (11.5-14.5) 10/05/24 08:44 Plt Count 247 K/uL (130-400) 10/05/24 08:44 MPV 9.9 fL (9.4-12.4) 10/05/24 08:44 Immature Gran % (Auto) 0.4 % 10/04/24 17:24 Neut % (Auto) 58.7 % 10/04/24 17:24 Lymph % (Auto) 28.8 % 10/04/24 17:24 [place] % (Auto) 11.0 % 10/04/24 17:24 Eos % (Auto) 0.6 % 10/04/24 17: Baso % (Auto) 0.5 % 10/04/24 17:24 Neut # (Auto) 4.81 K/uL (1.40-6.50) 10/04/24 17:24 Lymph # (Auto) 2.36 K/uL (1.20-3.40) 10/04/24 17:24 [place] # (Auto) 0.90 K/uL (0.11-0.59) H 10/04/24 17:24 Eos # (Auto) 0.05 K/uL (0.00-0.50) 10/04/24: Baso # (Auto) 0.04 K/uL (0.00-0.20) 10/04/24: Immature Gran # (Auto) 0.03 K/uL (0.01-0.20) 10/04/24: PT 10.4 Seconds (9.0-12.0) 10/04/24 17: INR 1.0 (0.9-1.1) 10/04/24: APTT 25 Seconds (21-31) 10/04/24: PTT Ratio 0.9 10/04/24 17:24 POC Sodium 139 mmol/L (135-144) 10/04/24 17: Sodium 137 mmol/L (136-145) 10/04/24 17: POC Potassium 3.8 mmol/L (3.3-5.0) 10/04/24 17: Potassium 3.7 mmol/L (3.5-5.1) 10/04/24 17:24 POC Chloride 104 mmol/L (101-112) 10/04/24 17: Chloride 104 mmol/L (98-107) 10/04/24 17: Carbon Dioxide 25 mmol/L (21-32) 10/04/24 17: POC Total CO2 24 mmol/L (24-31) 10/04/24 17:28 Anion Gap 8 (3-11) 10/04/24 17:24 POC Anion Gap 16.0 mmol/L (16-25) 10/04/24 17: POC BUN 15 mg/dl (7-18) 10/04/24 17:28 BUN 15 mg/dl (6-23) 10/04/24 17:24 Creatinine 0.72 mg/dl (0.6-1.2) 10/04/24 17:24 POC Creatinine 0.8 mg/dl (0.6-1.3) 10/04/24 17:28 Est Cr Clr Drug Dosing 108.8 ml/min 10/04/24 17:24 eGFR 103.71 10/04/24 17:24 BUN/Creatinine Ratio 20.8 (10-20) H 10/04/24 17:24 Glucose 104 mg/dl (70-99(Fasting)) H 10/04/24 17:24 POC Glucose 125 mg/dl (70-99) H 10/05/24 01:35 POC Glucose (other) 103 mg/dl (70-99) H 10/04/24 17:28 Calcium 9.2 mg/dl (8.6-10.3) 10/04/24 17:24 POC Ioniz Calcium [place] 1.17 mmol/l (1.12-1.32) 10/04/24 17:28 Total Bilirubin 0.3 mg/dl (0.2-1.0) 10/04/24 17:24 AST 17 U/L (13-39) 10/04/24 17:24 ALT 11 U/L (7-52) 10/04/24 17:24 Alkaline Phosphatase 42 U/L (34-104) 10/04/24 17:24 Total Protein 8.0 gm/dl (6.0-8.3) 10/04/24 17:24 Albumin 4.5 gm/dl (3.4-5.0) 10/04/24 17:24 Globulin 3.5 gm/dl (2.5-4.0) 10/04/24 17:24 Albumin/Globulin Ratio 1.3 (0.9-2) 10/04/24 17: Lipase 26 U/L (11-82) 10/04/24 17:24 HCG, Qual Negative (Negative) 10/04/24 17:24 Urine Color Yellow 10/05/24 03:30 Urine Appearance Clear (Clear) 10/05/24 03:30 Urine pH 7.0 (4.5-7.5) 10/05/24 03:30 Ur Specific [place] 1.020 (1.000-1.030) 10/05/24 03:30 Urine Protein Negative (Negative) 10/05/24 03:30 Urine Glucose (UA) Negative (Negative) 10/05/24 03:30 Urine Ketones 1+ (Negative) H 10/05/24 03:30 Urine Blood Negative (Negative) 10/05/24 03:30 Urine Nitrite Negative (Negative) 10/05/24 03:30 Urine Bilirubin Negative (Negative) 10/05/24 03:30 Urine Urobilinogen Negative (Negative) 10/05/24 03:30 Ur Leukocyte Esterase Negative (Negative) 10/05/24 03:30 Blood Type AB Positive 10/04/24 17:24 Antibody Screen NEGATIVE 10/04/24 17:24 Impressions Ankle X-Ray 10/04/24 17:22 EXAM: Radiographs of the Left Ankle 3 Views INDICATION: Fall down stairs. TECHNIQUE: Frontal, lateral and oblique views of the left ankle. COMPARISON: No relevant prior studies available. FINDINGS: Limitations: None. Bones/joints: No fracture, erosion or dislocation. Soft tissues: There is a moderate lateral soft tissue hematoma. No soft tissue gas collection or radiopaque foreign body. IMPRESSION: There is a moderate lateral soft tissue hematoma. No fracture. Recommend follow-up in 7 to 10 days if symptoms persist. ACT 112: Negative or not required by law. Electronically signed by Liza Herrmann 10-04-2024 5:57 PM Chest X-Ray 10/04/24 18:23 EXAM: Radiograph of the Chest 1 View INDICATION: Chest pain. TECHNIQUE: Frontal view of the chest. COMPARISON: No relevant prior studies available. FINDINGS: Lungs and pleural spaces: No consolidation or pulmonary edema. No pleural effusion or pneumothorax. Heart: Shape and configuration within normal limits allowing for technique. Mediastinum: Normal contour. Bones/joints: No fracture, erosion or dislocation. Soft tissues: No abnormality noted. No radiopaque foreign body noted. Upper abdomen: No abnormality noted. IMPRESSION: No abnormality noted. ACT 112: Negative or not required by law. Electronically signed by Liza Herrmann 10-04-2024 6:[address] 10/04/24 18:23 Exam(s): CT RIGHT ANKLE Without Contrast EXAM: CT Right Lower Extremity Without Intravenous Contrast, Ankle CLINICAL HISTORY: Reason for exam: leg frx, eval. TECHNIQUE: Axial computed tomography images of the right ankle without intravenous contrast. CTDI is 24 mGy and DLP is 590 mGy-cm. Automated exposure control was utilized for the study. A dose lowering technique was utilized adhering to the principles of ALARA. COMPARISON: X-rays same-day FINDINGS: Bones/joints: Comminuted open fracture of the tibial shaft. Comminuted fracture of the distal fibular metadiaphysis. Normal alignment of the mortise. No fracture extension to the articular surface. The distal syndesmosis appears normal. Soft tissues: No grossly evident tendon transection or entrapment. Soft tissue edema, hemorrhage, and gas. No radiopaque foreign body. IMPRESSION: 1. Comminuted open fracture of the tibial shaft. 2. Comminuted fracture of the distal fibular metadiaphysis. Electronically signed by: Wes Baez MD 10/04/24 20:45 PM Tibia/Fibula X-Ray 10/05/24 01:00 EXAM: XR tibia fibula RT 2V CLINICAL HISTORY: PAIN NOT PREG WTW TECHNIQUE: X-ray of right tibia and fibula, 2 views: AP (Anteroposterior) and lateral projections. COMPARISON: 10/04/2024 FINDINGS: Bone: Post ORIF status. Intramedullary nail with fixation screws are noted in the tibia through distal tibial comminuted fracture with adequate alignment. Redemonstration of comminuted fracture of the distal shaft of the fibula with near adequate alignment of fragments. Redemonstration of undisplaced transverse mid-shaft fracture of the fibula. Soft Tissue: Soft tissue swelling noted. Redemonstration of air adjacent to tibial fracture possibly subcutaneous emphysema. Surgical chris are noted in the soft tissues of the right leg. IMPRESSION: 1. Post ORIF status (open reduction and internal fixation). Interval new. 2. Intramedullary nail with fixation screws in tibia through distal tibial comminuted fracture with adequate alignment. 3. Redemonstration of comminuted fracture of the distal shaft of the fibula with near adequate alignment of fragments. 4. Redemonstration of undisplaced transverse mid-shaft fracture of the fibula. Disclaimer: A subtle bone abnormality or fracture may not be readily apparent on X-rays, thus clinical correlation and further imaging including follow-up CT, MRI, or follow-up X-rays are advised as needed. Electronically signed by Shannan Lutz 10-05-2024 02:24 AM (1) Sprain of ankle, left Encounter type: initial encounter
[2024-10-05] MEDS: oxyCODONE HCL IR 5 MG TAB (IMMEDIATE RELEASE) PO PRN (15:31)
--- OUTSIDE RECORDS SUMMARY | 2024-10-05 17:57 | External Medical Summary | Summary of Care ---
Author Name Unknown Organization [facility] Address [address] [address] Phone [phone] Care Team Providers Care Automation Driver Name Role Phone Kenia Zavaleta DO Primary Care Provider [phone] Reason for Visit * Reason Comments Acute Encounter Details Date Type Department Care Team (Latest Contact Info) Description 09/30/2024 10:20 AM EST Telemedicine General Internal Medicine [facility] [address] [facility] [place] [address] Kenia Bocanegra PA-C [address] [facility] [place] [address] Acute conjunctivitis of left eye, unspecified acute conjunctivitis type* Allergies Active Allergy Reactions Criticality Noted Date Comments Amoxicillin 08/29/2000 Rash Sulfa Antibiotics 08/29/2000 Rash documented as of this encounter (statuses as of 09/30/2024) Medications Fluticasone Propionate 50 MCG/ACT Nasal Suspension (Flonase)Indica tions:Post-nasa l drip Administer 2 Sprays into each nostril in the morning. 9.9 mL 10 3 Active Escitalopram Oxalate 10 MG Oral Tablet (Lexapro)Indica tions:NILA (generalized anxiety disorder) Take 1 Tablet by mouth in the morning. 90 Tablet 5 3 Active documented as of this encounter (statuses as of 09/30/2024) Active Problems Problem Noted Date Diagnosed Date Raynaud's disease without gangrene 04/09/2019 Elderly multigravida 06/01/2012 Acne documented as of this encounter (statuses as of 09/30/2024) Resolved Problems Problem Noted Date Diagnosed Date Resolved Date ADVANCE DIRECTIVE INFORMATION 06/01/2012 08/30/2024 Overview (06/01/2012): Yes, patient instructed to provide copy of Advance Directive for provider to review and to be scanned into Electronic Medical Record documented as of this encounter (statuses as of 09/30/2024) Immunizations Name Administration Dates Next Due COVID-19 mRNA, LNP-s, No Pre serve, 2-Dose Series ([employer]) 04/12/2021,03/22/2021 PPD 12/27/2015 Seasonal Influenza Vac., MDV , IM, 0.5 mL (Fluzone) 08/16/2015,08/10/2010 Seasonal Influenza, PF, 6 M & above, IM , (FluLaval or Fluzone) 08/10/2022,07/27/2019,09/08/2018 Seasonal Influenza, Quadriva lent, No Preserve, IM 07/30/2023 TDAP, Age 7 and older, IM (Adacel) 04/05/2007 documented as of this encounter Social History Tobacco Use Types Packs/Day Years Used Date Smoking Tobacco: Never Passive Smoke Exposure: Past Smokeless Tobacco: Never Alcohol Use Standard Drinks/Week Comments No 0 (1 standard drink = 0.6 oz pur e alcohol) few times a month PHQ-2 Answer Date Recorded PHQ Adult Total Score 0 09/05/2023 Hunger Vital Sign Answer Date Recorded Within the past 12 months, y ou worried that your food would run out before you got the money to buy more. Never true 07/02/20 24 Within the past 12 months, t he food you bought just didn't last and you didn't have money to get more. Never true 07/02/2024 Childcare Answer Date Recorded Do you feel overwhelmed with taking care of a child, family member or friend? No 07/02/2024 Does your family need help f inding childcare? (Household - for ages 0-17 years) Not on file 07/02/2024 Clothing Answer Date Recorded Have you been unable to get clothing when it was really needed? No 07/02/2024 Is your family able to get c lothes or diapers when needed? (Household - for ages 0-17 years) Not on file 07/02/2024 Personal Safety Answer Date Recorded Do you feel unsafe or have concerns for your saf ety? No 07/02/2024 Do you have concerns for you r family's safety? (Household - for ages 0-17 years) Not on file 07/02/2024 Utilities Answer Date Recorded Do you have trouble paying y our heating, water, or electric bill? No 07/02/2024 Is your family able to pay t he heat, water, or electric bill? (Household - for ages 0-17 years) Not on file 07/02/2024 Does your family have access to good internet? (Household - for ages 0-17 years) Not on file 07/02/2024 Employment Status Answer Date Recorded Are you unemployed or without regular income? No 07/02/2024 Does the household have a [facility] source of income? (Household - for ages 0-17 years) Not on file 07/02/2024 Social Connections Answer Date Recorded How often do you feel lonely or isolated from th ose around you? Never 07/02/2024 Financial Resource Strain Answer Date R ecorded Do you have any trouble payi ng for your medications, or do you think you might in the future? No 07/02/2024 Does your family have troubl e paying for medicine? (Household - for ages 0-17 years) Not on file 07/02/2024 Transportation Needs Answer Date Record ed Do you have trouble getting a ride to medical visits or work? (Adult - for ages 18 years and over) Not on file 07/02/2024 Does your family have a hard time getting a ride to doctors visits? (Household - for ages 0-17 years) Not on file 07/02/2024 Has lack of transportation k ept you from medical appointments, meetings, work, or from getting things needed for daily living? Check all that apply. No 07/02/2024 Do you (or your family) have trouble finding or paying for a ride (transportation)? (Household - for ages 0-17 years) Not on file 07/02/2024 Housing Stability Answer Date Recorded Do you currently live in a s helter or have no steady place to sleep at night? No 07/02/2024 Do you think you are at risk of becoming homeless? (Adult - for ages 18 years and over) Not on file 07/02/2024 Does your family worry about paying for your home or becoming homeless? (Household - for ages 0-17 years) Not on file 0 07/02/2024 Are you homeless or worried that you might be in the future? No 07/02/2024 Are you (or your family) stephani eless or worried that you might be in the future? (Household - for ages 0-17 years) Not on file Food Insecurity Answer Date Recorded Do you need food for this week? No 07/02/2024 Are you able to get enough f ood for your family? (Household - for ages 0-17 years) Not on file 07/02/2024 Does your family need food t his week? (Household - for ages 0-17 years) Not on file 07/02/2024 Do you always have enough fo od for your family? 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 History of Present Illness Valerie Fan is a 49 year old female that presents for Acute Patient location: HOME. I was in a hospital or clinic location. After connecting through [employer],patient was verified with two unique identifiers. Patient (or authorized legal product support sales representative) was then informed that this was a Telemedicine visit and being conducted confidentially over secure lines. Methods to assure confidentiality were taken. Patient acknowledged consent and understanding of pr ivacy and security of the Telemedicine visit. The patient agreed to participate. Pt seen today via video with a c/o a 1 day history of left eye redness. Medial portion of L eye. Mildly irritated and watery. No crusting this morning. No thick, colored discharge. Pt also reports mild nasal congestion--does tend to have allergies in the winter. Review of Systems: See HPI for pertinent positives. All other review of systems is negative. Physical Exam There were no vitals filed for this visit. Physical Exam Constitutional: General: She is not in acute distress. Pulmonary: Effort: Pulmonary effort is normal. Neurological: General: No focal deficit present. Mental Status: She is alert. Psychiatric: Mood and Affect: Mood normal. Behavior: Behavior normal. I have reviewed the following results: Assessment and Plan Acute conjunctivitis of left eye, unspecified acute conjunctivitis type Suspect symptoms are allergic or viral in nature. Discussed using Flonase to relieve congestion andallow the eye to drain properly. Could also try Pataday gtts. Advised if develops significant eye crusting or thick discharge from the eye, to let us know. Wrap-Up Follow Up: Return if symptoms worsen or fail to improve. Time: I spent a total of 20-29 minutes (exact time 22 mins) on the date of service in preparation, delivery, and documentation of the care provided to Valerie Fan excluding any time spent in the performance of separately billed services. Telemedicine: Patient location: HOME. I was in a hospital or clinic location. After connecting through televideo,patient was verified with two unique identifiers. Patient (or authorized legal product support sales representative) was then informed that this was a Telemedicine visit and being conducted confidentially over secure lines. Methods to assure confidentiality were taken. Patient acknowledged consent and understanding of pr ivacy and security of the Telemedicine visit. The patient agreed to participate. documented in this encounter Plan of Treatment Upcoming Encounters Date Type Department Care Team (Late st Contact Info) Description 01/17/2025 10:50 AM EDT Office Visit [facility] [place] [address] [phone] Kenia Zavaleta, DO [address] [place] [address] Health Maintenance Due Date Last Done Comments Hepatitis B Vaccine (1 of 3 - 19+ 3-dose series) 1996 HPV/Co-Test 2007 DTap/Tdap Vaccines (2 - Td or Tdap) 04/05/2017 04/05/2007 Cervical Cancer Screening 12/31/2021 Pap Smear 12/31/2021 12/31/2018, 08/27, 06/07/2015 (Done elsewhere), Additional history exists Colonoscopy 2022 Fecal Occult Blood Test 2022 Sigmoidoscopy 2022 COVID-19 Vaccine ( season) 2024 04/12/2021, 03/22/2021 Influenza Vaccine (FLU shot) (#1) 2024 07/30/2023, 08/10/2022, 07/27/2019, Additional history exists Depression Screening 09/05/2024 09/05/2023 Mammogram 12/25/2024 12/26/2023, 11/28, 11/29/2021, Additional history exists HIV Screening 07/15/2025 Postponed from 1992 (Patient Declined After Education) Hepatitis C Screening 07/15/2025 Postpo mary jo from 1995 (Patient Declined After Education) Cologuard 08/02/2025 08/02/2022, 01/2022, 07/30/2022 Colorectal Cancer Screening 08/02/2025 Diabetes Screening 03/27/2026 03/27/2023, 1 12/15/2021, 02/21/2022, Additional history exists Lipid Panel 10/14/2027 10/14/2022, 01/03/2011 HPV (Gardasil) Vaccine Aged Out No lo nger eligible based on patient's age to complete this topic MENINGOCOCCAL (MENACTRA/MENVEO) Aged Out No longer eligible based on patient's age to complete this topic Pneumococcal Vaccine: Pediatrics (0 to 5 Years) and At-Risk Patients (6 to 64 Years) Aged Out No longer eligible based on patient's age to complete this topic documented as of this encounter Medical Devices Not on filedocumented as of this encounter Visit Diagnoses Diagnosis Acute conjunctivitis of left eye, unspecified acute conjunctivitis type- Primary documented in this encounter Care Teams Automation Driver Relationship Specialty Start Date End Date Kenia Zavaleta DO [address] [place] [address] PCP - General Family Medicine 03/24/19 documented as of this encounter
--- OUTSIDE RECORDS SUMMARY | 2024-10-05 17:57 | External Medical Summary | Summary of Care ---
Author Name Unknown Organization [facility] Address [address] [place] [address] Phone [phone] Care Team Providers Care Tile Layer Supervisor Name Role Phone Kenia Zavaleta DO Primary Care Provider [phone] Reason for Visit * Reason Comments Follow Up Patient is here toda y for a 6 month follow up.Patient reports discomfort in L thumb; no swelling or injury. Encounter Details Date Type Department Care Team (Late st Contact Info) Description 07/15/2024 9:50 AM EDT Office Visit [facility] [address] [place] [address] Kenia Zavaleta, [address] [place] [address] NILA (generalized anxiety disorder)*; Menorrhagia with regular cycle; Raynaud's disease without gangrene; Tendinitis of thumb Allergies Active Allergy Reactions Criticality Noted Date Comments Amoxicillin 08/29/2000 Rash Sulfa Antibiotics 08/29/2000 Rash documented as of this encounter (statuses as of 07/15/2024) Medications Medication Sig Dispensed Refills Start Date End Date Status Fluticasone Propionate 50 MCG/ACT Nasal Suspension (Flonase)Indicat ions:Post-nasal drip Administer 2 Sprays into each nostril in the morning. 9.9 mL 10 03/05/2023 Active Escitalopram Oxalate 10 MG Oral Tablet (Lexapro)Indicat ions:NILA (generalized anxiety disorder) Take 1 Tablet by mouth in the morning. 90 Tablet 5 09/05/2023 Active Adapalene 0.3 % External Gel (Differin)Indica tions:Adult acne Apply to whole face nightly 45 g 2 09/03/2021 07/15/2024 Discontinued (Patient preference/d iscontinuati on) documented as of this encounter (statuses as of 07/15/2024) Active Problems Problem Noted Date Diagnosed Date Raynaud's disease without gangrene 04/09/2019 ADVANCE DIRECTIVE INFORMATION 06/01/2012 Overview: Yes, patient instructed to provide copy of Advance Directive for provider to review and to be scanned into Electronic Medical Record Elderly multigravida 06/01/2012 Acne documented as of this encounter (statuses as of 07/15/2024) Immunizations Name Administration Dates Next Due COVID-19 mRNA, LNP-s, No Pre serve, 2-Dose Series ([employer]) 04/12/2021,03/22/2021 PPD 12/27/2015 Seasonal Influenza, PF, 6 M & above, IM , (FluLaval or Fluzone) 08/10/2022,07/27/2019,09/08/2018 Seasonal Influenza, Quadriva lent, No Preserve, IM 07/30/2023 Seasonal Influenza, Trivalen t, (IIV3), with Preserv, (Fluzone) 08/16/2015,08/10/2010 TDAP, Age 7 and older, IM (Adacel) [...] No 07/02/2024 Does the household have a re gular source of income? (Household - for ages [...] ages 0-17 years) Not on file 07/02/2024 Sex and Gender Information Value Date Recorded Sex Assigned at Female 01/28/2019 2:11 PM EDT Gender Identity Female 01/28/2019 2:11 PM EDT Sexual Orientation Straight 01/28/2019 2: 11 PM EDT Job Start Date Occupation Industry Not on file Not on file Not on file documented as of this encounter Last Filed Vital Signs Vital Sign Reading Time Taken Comments Blood Pressure 124/78 07/15/2024 9:57 AM EDT Pulse 78 07/15/2024 9:57 AM EDT Temperature 36.4 C (97.5 F) 07/15/2024 9:57 AM ED T Respiratory Rate 16 07/15/2024 9:57 AM EDT Oxygen Saturation 100% 07/15/2024 9:57 AM EDT Inhaled Oxygen Concentration - - Weight 81 kg (178 lb 8 oz) 07/15/2024 9:57 AM ED T Height 162.6 cm (5' 4") 07/15/2024 9:57 AM EDT Body Mass Index 30.64 07/15/2024 9:57 AM EDT documented in this encounter Progress Notes * Kenia Zavaleta, DO - 07/15/2024 10:05 AM EDT Subjective: Valerie Lynch is a 49 year old female. Chief Complaint Patient presents with Follow Up Patient is here today for a 6 month follow up. Patient reports discomfort in L thumb; no swelling or injury. HPI: 49 year old female here today for a follow-up. She has hx of Raynaud's Having some L thumb pain. This happened after hiking in [place]. Taking lexapro helping her anxiety a lot. Having heavy periods, and more clots. Advised by HUMAN SERVICES CARE SPECIALIST to take aleve during heavy days. Asking about interactions with medications. Suggested this would be ok with the lexapro. Not to take more than 2 days. Daughter got accepted to [facility]. PHM: Patient Active Problem List Diagnosis ADVANCE DIRECTIVE INFORMATION Elderly multigravida Acne Raynaud's disease without gangrene Current Outpatient Medications Medication Sig Dispense Refill Escitalopram Oxalate 10 MG Oral Tablet (Lexapro) Take 1 Tablet by mouth in the morning. 90 Tablet 5 Fluticasone Propionate 50 MCG/ACT Nasal Suspension (Flonase) Administer 2 Sprays into each nostril in the morning. 9.9 mL 10 No current facility-administered medications for this visit. Review of patient's allergies indicates: Allergen Reactions Amoxicillin Rash Sulfa Antibiotics Rash Objective: BP 124/78 | Pulse 78 | Temp 36.4 C (97.5 F) (Tympanic) | Resp 16 | Ht 1.626 m (5' 4") | Wt 81 kg (178 lb 8 oz) | SpO2 100% | BMI 30.64 kg/m | BSA 1.91 m Physical Exam: General: alert, healthy, and no distress Heart: regular rate & rhythm, no murmur, and no gallops Lungs: chest symmetric with normal AP diameter, no chest deformities noted, no chest wall tenderness, lungs clear to auscultation Abdomen: abdomen soft, non-tender, normal bowel sounds, and no masses or organomegaly Extremities: no joint deformities, effusion, or inflammation, no edema, no skin discoloration, no clubbing ASSESSMENT/PLAN: NILA (generalized anxiety disorder) (Primary) Cont the lexapro. Menorrhagia with regular cycle Use as needed aleve. Raynaud's disease without gangrene Stable. Tendinitis of thumb Stretching and avoid holding her L thumb in place Kenia Zavaleta DO documented in this encounter Nursing Notes * Sri Hilliard MED ASSIST - 07/15/2024 10:01 AM EDT The patient has been properly identified by confirmation of name and date of . Chief Complaint Patient presents with Follow Up Patient is here today for a 6 month follow up. Patient reports discomfort in L thumb; no swelling or injury. documented in this encounter Plan of Treatment Upcoming Encounters Date Type Department Care Team (Late st Contact Info) Description 01/17/2025 10:50 AM EDT Office Visit [facility] [address] [place] [id number] Kenia Zavaleta DO [address] [place] [address] Health Maintenance Due Date Last Done Comments Hepatitis B Vaccine (1 of 3 - 19+ 3-dose series) 1996 HPV/Co-Test 2007 DTap/Tdap Vaccines (2 - Td or Tdap) 04/05/2017 04/05/2007 Cervical Cancer Screening 12/31/2021 Pap Smear 12/31/2021 12/31/2018, 08/27, 06/07/2015 (Done elsewhere), Additional history exists Colonoscopy 2022 Fecal Occult Blood Test 2022 Sigmoidoscopy 2022 COVID-19 Vaccine (2023-25 season) 2024 04/12/2021, 03/22/2021 Influenza Vaccine (FLU [...] as of this encounter Visit Diagnoses Diagnosis NILA (generalized anxiety disorder)- Primary Generalized anxiety disorder Menorrhagia with regular cycle Excessive or frequent menstruation Raynaud's disease without gangrene Tendinitis of thumb Other tenosynovitis of hand and wrist documented in this encounter Care Teams Tile Layer Supervisor Relationship Specialty Start Date End Date Kenia Zavaleta DO [address] [facility] [place] [address] PCP - General Family Medicine 03/24/19 documented as of this encounter
[2024-10-05] MEDS: SENNA 8.6 MG TAB PO SCH (20:31)
[2024-10-05] MEDS: ENOXAPARIN INJ 30 MG/0.3 ML SYR SQ SCH (20:31)
--- NOTE | 2024-10-06 08:34 | Orthopedic Progress Note ---
Date of Service October 06, 2024 Assessment & Plan (1) Sprain of ankle, left: Plan: Continue use of the air stirrup When up Work on range of motion Ice. Weight-bear as tolerated. Exercises reviewed. (2) Open tibial fracture: Plan: Findings discussed with patient. Will see how she does today with pain control and PT. Elevate ice. Her vitamin D level is 11. Very low. She will probably need an outpatient bone health workup. We will administer 50,000 units of oral vitamin D3 now and continue that for 6 weeks and recheck. She will be on Lovenox 30 mg SQ twice daily and will get a CBC checked weekly while she is on that. I anticipate her being on Lovenox for at least 2 weeks. May possibly then switch to aspirin. When she is discharged she will go home on her regular medicines plus the Lovenox stool softener and Ultram for pain along with the vitamin D3. She may get the incisions wet on Friday but before that we will need to cover up clean and dry. She is educated on wound hygiene and she can change her dressings every other day. Elevate the foot above the level of the heart. Apply ice. She will follow-up Friday for a wound check and then in 2 weeks for wound check and staple removal plus x-rays. If there is any problems with severe pain swelling fevers tingling numbness persistent wound drainage or any other problems or questions she is to call my office. She may gradually progress to weightbearing as tolerated on the right leg using crutches or walker. Additionally because of the bone defect secondary to the devitalized bone fragment that had to be removed she may need to have a bone graft procedure done 6 to 8 weeks after the index operation. She will also likely need a bone health workup as an outpatient. (3) Fibula fracture: Admission and Anticipated Discharge Date Admission Date: October 04, 2024 Orthopedic Progress Note Doing well. No major problems reported. Pain is well-controlled with Ultram. Afebrile vital signs are stable. Pulse rate slightly high. The left ankle is swollen mainly on the lateral side. She has good range of motion. Dressings changed on the right leg. All incisions are benign. The traumatic open wound is healing well without any evidence of skin necrosis. There is no significant drainage and no hematoma formation. Swelling of the leg is mild. The leg is cleaned and a new dressing is applied. She has intact sensation throughout the foot with a 1+ palpable DP and PT pulses. Capillary refills less than 2 seconds. She can wiggle her toes and do plantarflexion dorsiflexion and eversion of the ankle and toes with 5 to 5- out of 5 strength. Limited range of motion secondary to pain and swelling. There is no clinical evidence of compartment. No blistering or skin breakdown. (1) Sprain of ankle, left Encounter type: initial encounter
[2024-10-06] MEDS: ERGOCALCIFEROL 1250 MCG (50,000 UNITS) CAP PO ONE (09:47)
[2024-10-06 15:53] VITALS: BP 146/92; RESP 18; TEMP 98.1; O2SAT 99
--- NOTE | 2024-10-06 16:11 | Discharge Summary ---
Date of Service October 06, 2024 Principal Diagnosis s/p fixation right open tibia/fibula fracture, left ankle sprain Discharge Data Allergies Allergy/AdvReac Type Severity Reaction Status Date / Time Penicillins Allergy Unknown Hives Verified 10/04/24 17:21 Sulfa (Sulfonamide Allergy Unknown Hives Verified 10/04/24 17:21 Antibiotics) Procedures Performed Operation Date: 10/04/24 20:30 Actual Procedures p Irrigation and Debriedment Open Right Tibial Fracture, Intramedullary Nail Tibia(Right) - Michele Batres MD Hospital Course (1) Open tibial fracture: Valerie Fan presented to the emergency department after falling down 2 stairs. She was found to have an open angulated comminuted tibia fracture with an associated fibula fracture. Left ankle x-rays were negative however she was felt to have sprain. Orthopedics was consulted and Dr. Batres evaluated the patient in the emergency department. Her open fracture was reduced at the bedside and she was splinted. She was given Ancef for the open fracture. Pain medication was provided. A CT scan was obtained for surgical planning purposes. Patient was taken to the OR that evening for washout of the open fracture and fixation of the tibia fracture with an intramedullary nail. She was admitted under our service. She developed a mild elevation of her white blood cell count likely secondary to pain and surgery. She developed a mild anemia hemoglobin 10.4 likely secondary to acute blood loss anemia from surgery. Her vitamin D was found to be low at 11.2, and she was started on vitamin D supplementation 50,000 units which she will take on a weekly basis for the next 6 weeks and then her vitamin D level be rechecked. She was provided with Lovenox for DVT prophylaxis. Patient received IV Ancef continuously for an additional 2 days while admitted under our service. A dressing change was performed on 10/06/2024 and there was no evidence of infection and her incisions appeared to be satisfactory without any evidence of infection. She did not have any chest pain or shortness of breath while admitted. Her pain was controlled while admitted. She preferred to take tramadol and did not like the oxycodone. She elevated and iced while admitted She participated with physical therapy and Occupational Therapy and was deemed to be appropriate to be discharged back home. She does have support at home to assist her. She has crutches. She felt well enough to be discharged home and dressing changes were reviewed in detail with her. Wound care instructions were reviewed. A wound check appointment was scheduled in our office on 10/11/2024 and a 2-week follow-up for x-rays and staple removal was also scheduled. She will require weekly CBC while on Lovenox. She can gradually progress to weightbearing as tolerated using crutches or a walker. Continue to elevate and ice. Pain control with Tylenol and tramadol. PDMP reviewed with no concerns. Due to the comminuted nature of her fracture and bone defect, patient may require bone graft procedure in 6 to 8 weeks. This was reviewed with her. She may also require an additional bone health workup given history of pelvic fracture and now this fracture. Patient was given instructions to contact our office with any concerns which were reviewed in detail. She was provided with prescriptions for tramadol as well as Lovenox and will take Lovenox for at least the next 2 weeks and then possibly switch to aspirin. (2) Fibula fracture: See above (3) Sprain of ankle, left: Will continue to follow at follow-up appointments. Elevate and ice as above. Work on range of motion with tracing the alphabet as tolerated. Wear the gel ankle splint when ambulating. Total Time Total Time Spent Total Time Spent (In Minutes): 30 Discharge Plan Discharge Items Patient Disposition: Home - Self-Care Reason For Visit: POST SURGICAL CARE Discharge Diagnosis: s/p repair right open tibia/fibula fracture, left ankle sprain, vitamin D deficiency Condition on Discharge: Good Activity: Per Instructions section Weightbearing: Left weightbearing and Right partial Weightbearing Comment: with crutches or walker Non-emergency contact: Surgeon Call non-emergency contact if: your pain is not controlled, your rectal temperature is above 100.4 and your wound has increased drainage Follow-up/Referrals: Sri Oconnell PA-C [Physician Core Sticker] - 10/11/24 11:00 am Kenia Zavaleta DO [Primary Care Provider] - Michele Batres MD [Surgeon] - 10/18/24 3:00 pm Diet: Regular Addtl Attending Provider Instructions: Activity: - You can gradually progress from toe touch weightbearing to weight-bearing as tolerated with crutches - Work on your exercises (ankle pumps, straight leg raise, knee bends, and quad sets) mutiple times per day. Write the alphabet with your left ankle several times per day as we discussed to promote healing. - Participate in physical therapy as scheduled - Use the thigh high SUNITHA stockings during the day on the left leg. You can launder these. You will eventually wear these on both legs once we switch you from the ZOHRA wrap. - Elevate your leg above your heart when at rest. You should be resting 90% of the day - Apply ice (not directly to your skin) to your right leg and left ankle 20 minutes every other hour Dressing/wound care: - Change dressing every other day. - Wash your hands with soap and water and wear gloves when changing dressing. Do not touch the incision. - Cleanse around the incisions with sterile saline wipes. Allow to dry - Apply nonstick adaptic dressing over the wounds - Pad with 4x4 gauze - Wrap with ZOHRA wrap - Do not need to use ointments or creams on the incision - Further wound care instructions will be provided at your follow up appointment on Friday - Keep your wounds dry until Friday. After Friday, you can gently cleanse with soap and water in the shower and allow shower water to flow over the incisions. Do not submerge the wounds. Medications: - Take tylenol 1000 mg every 8 hours. Do not take more than 3000 mg in a 24 hour window - Take the tramadol (ultram) as prescribed for breakthrough pain. No driving or machinery while taking this medication - Take senekot or colace to prevent constipation - Use the lovenox as prescribed to prevent clots - Take vitamin D3 50,000 IU once weekly over the next 6 weeks - Avoid NSAIDs like ibuprofen/aleve Follow up: - Scheduled for follow up 10/11 and 10/18 listed in instructions - You will need weekly blood work on Friday and the following Friday (cbc) Concerns: - Contact the office at [phone] with any questions or concerns Pending Studies at Discharge: No Stand-Alone Forms: [employer], Smoking Cessation Medications and DC Order Prescriptions: New tramadol 50 mg tablet 50 - 100 mg PO Q4H PRN (Reason: pain) Qty: 18 0RF Rx Instructions: Take 1 tab for pain 1-5 Take 2 tabs for pain 6-10 enoxaparin [Lovenox] 30 mg/0.3 mL syringe 30 mg subcut Q12H 14 Days Qty: 9 1RF acetaminophen [Tylenol Extra Strength] 500 mg Tablet 1,000 mg PO Q8 PRN (Reason: fever or pain) Qty: 30 0RF Continued escitalopram oxalate 10 mg tablet 10 mg PO UD Rx Instructions: 10 mg po daily. last filled 08/16 30 day supply Held acetaminophen [Tylenol] 325 mg tablet 325 mg PO QID PRN (Reason: Pain) Hold Instructions: while on schedule Tylenol Rx Instructions: otc unable to verify Discharge Orders: Discharge Order (Routine); Ordered 10/06/24 Ordered By: Sri Oconnell Admission Data Admit Date/Time: 10/04/24 23:56 Attending Provider: Michele Batres Admit Provider: Michele Batres Primary Care Provider: Kenia Zavaleta Other Providers: Michele Batres; [facility] Other Interventions: Discharge Summary Assessment (RN) Last Done: 10/06/24 16:22
[2024-10-06] MEDS: INFLUENZA VACC TS2024-25(6m+)/PF (IIV3) 0.5mL Syr IM ONE (16:15)
[2024-10-06 16:23] VITALS: PULSE 105
== END 2024-10-06 17:00 | disposition home or self-care (01) | DRG 494 ==
LOC: ED 17:15 → OR 19:50 → 3N 19:50